=== PATIENT | female | born 1965 | race Caucasian/White ===

== ENCOUNTER 2018-04-29 09:28 | Day surgery (SDC) | payer OTHER ==
[2018-04-29] MEDS ORDERED: LIDOCAINE 2% (SDV) 5 ML INJ (10:11)
[2018-04-29] MEDS ORDERED: PROPOFOL 60 ML (10:11)
== END 2018-04-29 12:38 | disposition home or self-care (01) ==
LOC: GIL 09:28
DX: Z12.11 Encounter for screening for malignant neoplasm of colon (principal); K64.8 Other hemorrhoids
CPT/HCPCS: 45378